=== PATIENT | male | born 1985 | race Caucasian/White ===

== ENCOUNTER 2021-01-05 06:13 | Day surgery (SDC) | payer BC, OTHER ==
[~2021-01-05] VITALS: Ht 188 cm; Wt 90.7 kg
[~2021-01-05 06:13] MED LIST: DAILY VALUE1 EAC1 PO; FLONASE 0.05%50 MCG NARES; LEXAPRO 10 MG T10 M2 PO; NASAL ALLERGY S13 ML NASAL; PROTONIX40 M2 PO
[2021-01-05 07:40] VITALS: BP 142/84
[2021-01-05] MEDS ORDERED: OXYCODONE HCL 55 MG PO (10:33)
[2021-01-05] MEDS ORDERED: IBUPROFEN 200200 M1 PO (10:33)
[2021-01-05] MEDS ORDERED: MIRALAX17 GM PO (10:34)
[2021-01-05] MEDS ORDERED: COLACE100 MG PO (10:34)
[2021-01-05] MEDS ORDERED: ACETAMINOPHEN325 M1 PO (10:34)
[2021-01-05 10:49] VITALS: BP 142/84
--- NOTE | 2021-01-07 15:07 | PATH ---
[facility] [address] [place] [address] PATHOLOGY RPT PROCEDURE Name: JASON ARTHUR Room #: DEP [facility] M.R.#: [id number] Admission: 01/05/21 Date of : 85 Discharge: 01/05/21 Report #: [id number] Path Case #: [id number] [facility] Accession Number: [id number] . 01 Material submitted: . gallbladder - GALLBLADDER . 01 Clinical history: . LAPAROSCOPIC CHOLECYSTECTOMY-SJ SYMPTOMATIC CHOLELITHIASIS . 02 Diagnosis: Gallbladder, cholecystectomy: - Mild chronic cholecystitis. - Cholelithiasis. - Focal cholesterolosis. ([facility]; 01/07/2021) QMS 01/07/2021 1248 Local . 02 Electronically signed: . Fallon Coburn MD, Pathologist NPI- [id number] . 01 Gross description: . Fixative: Formalin Labeled: Gallbladder Specimen received: Intact cholecystectomy specimen Dimensions: 9.3 x 4.1 x 3.7 cm Serosa: Campos-green and smooth Lymph node: Not identified Mucosa: Dark green and velvety Average wall thickness: 0.1 cm Calculi: Yes, multiple friable soft yellow-green calculi are present within the gallbladder measuring in aggregate 3.5 x 3.5 x 0.4 cm and ranging from 0.1-0.4 cm in greatest dimension. Abnormalities: None identified A1- Sole Stapler Welt body, fundus, and the cystic duct margin. ([facility]; 01/06/2021) [facility] 01/06/2021 0758 Local . 02 Pathologist provided ICD-10: K80.10, K82.4 . 02 CPT . 932439 Specimen Comment: A courtesy copy of this report has been sent to [phone], [phone], [phone] [id number] PATHOLOGY RPT PROCEDURE Name: JASON ARTHUR [id number]mission: 01/05/21 Date of : 85 Discharge: 01/05/21 Report #: [id number] Path Case #: [id number] Specimen Comment: [id number] Specimen Comment: Report sent to / DR MOORE Performed at: 01 [facility]rig[facility] [address] [place] [address] [address], [place], [place] [id number] MD Logan Rm MD Phone: [phone] Performed at: [address] [id number] MD Fallon Coburn MD Phone: [phone]
== END 2021-01-05 11:30 | disposition home or self-care (01) ==
LOC: OR 06:13 → TBA 06:13 → OR 09:56
PROVIDERS: ATTEND Surgery
DX: K80.20 Calculus of gallbladder without cholecystitis without obstruction (principal); K21.9 Gastro-esophageal reflux disease without esophagitis; F32.9 Major depressive disorder, single episode, unspecified; Z98.890 Other specified postprocedural states; Z79.899 Other long term (current) drug therapy; Z87.891 Personal history of nicotine dependence; Z20.822 Contact with and (suspected) exposure to COVID-19
CPT/HCPCS: 50010; 50101; 50411; 50555; 52265; 52266; 53307; 53310; 53312; 54022; 54118; 55245; 56462; 56525; 56526; 58574; 58910; 62110; 62900; 70005